=== PATIENT | male | born 1990 | race Asian ===

== ENCOUNTER 2017-02-16 05:31 | Emergency (ER) | payer OTHER ==
[~2017-02-16] VITALS: Ht 193 cm; Wt 127.3 kg
[~2017-02-16 05:31] MED LIST: AMOXICILLIN 8751 TAB; AUGMENTIN 250 M1 TAB PO; FLEXERIL 1010 MG/TAB PO; MYORISAN30 MG PO; NORCO 325 MG-51 TAB PO
[2017-02-16 05:34] VITALS: BP 142/78; TEMP 98
[2017-02-16 06:44] VITALS: PULSE 104
== END 2017-02-16 06:42 | disposition home or self-care (01) ==
LOC: COL.ER 05:31
DX: K64.8 Other hemorrhoids (principal); Z90.49 Acquired absence of other specified parts of digestive tract

== ENCOUNTER 2017-06-05 22:29 | Emergency (ER) | payer SELFPAY ==
[~2017-06-05] VITALS: Ht 193 cm; Wt 127.3 kg
[2017-06-05 22:37] VITALS: BP 146/80; PULSE 105; TEMP 98.2
[2017-06-05] MEDS ORDERED: DOXYCYCLINE 10100 MG PO (23:01)
== END 2017-06-05 23:19 | disposition home or self-care (01) ==
LOC: COL.ER 22:29
DX: N48.21 Abscess of corpus cavernosum and penis (principal)